=== PATIENT | female | born 1930 ===

== ENCOUNTER 2018-04-03 15:50 | Inpatient (IN) | payer MEDICARE, BC ==
[~2018-04-03] VITALS: Ht 162.6 cm; Wt 41.1 kg
[2018-04-03] MEDS ORDERED: PREG75CA PO (16:18)
[2018-04-03] MEDS ORDERED: PRAM0.129 PO (16:18)
[2018-04-03] MEDS ORDERED: ONDA4TAB10 PO (16:18)
[2018-04-03] MEDS ORDERED: BETH25TA PO (16:18)
[2018-04-03] MEDS ORDERED: QUET25TA PO ×2 (16:18)
[2018-04-03] MEDS ORDERED: LORA-258 PO (16:18)
[2018-04-03] MEDS ORDERED: ASCO-375 PO (16:18)
[2018-04-03] MEDS ORDERED: SENN-167 PO (16:18)
[2018-04-03] MEDS ORDERED: DOCU100C36 PO (16:18)
[2018-04-03] MEDS ORDERED: MULT1TAB73 PO (16:18)
[2018-04-03] MEDS ORDERED: SIMV40TA5 PO (16:18)
[2018-04-03] MEDS ORDERED: CARB1TAB21 PO (16:18)
[2018-04-03 16:33] LABS: BASOPHILS % (AUTO) 0.6 % (0.0-2.0); EOSINOPHILS # (AUTO) 0.1 K/uL (0.0-0.7); EOSINOPHILS % (AUTO) 1.2 % (0.0-7.0); HEMATOCRIT 39.7 % (31.2-41.9); HEMOGLOBIN 13.2 g/dL (10.9-14.3); LYMPHOCYTES # (AUTO) 1.5 K/uL (20.0-40.0); LYMPHOCYTES % (AUTO) 19.5 % (20.5-51.5); MEAN CORPUSCULAR HEMOGLOBIN 30.2 uug (24.7-32.8); MEAN CORPUSCULAR HGB CONC 33 g/dL (32.3-35.6); MEAN CORPUSCULAR VOLUME 90.6 fL (75.5-95.3); MONOCYTES # (AUTO) 0.7 K/uL (2.0-10.0); MONOCYTES % (AUTO) 8.5 % (0.0-11.0); NEUTROPHILS # (AUTO) 5.6 K/uL (1.8-8.9); NEUTROPHILS % (AUTO) 70.2 % (38.5-71.5); PLATELET COUNT (AUTO) 289 K/uL (179-408); RED BLOOD CELL COUNT(AUTO) 4.38 MIL/uL (3.63-4.92); WHITE BLOOD COUNT (AUTO) 7.9 K/uL (3.8-11.8)
[2018-04-03 16:42] LABS: CARBON DIOXIDE 28 mmol/L (21-32); CHLORIDE 103 mmol/L (98-107); GLUCOSE 100 mg/dL (74-106); POTASSIUM 4.2 mmol/L (3.5-5.1); UREA NITROGEN, BLOOD 17 mg/dL (7-18)
[2018-04-03 16:58] LABS: ALANINE AMINOTRANSFERASE 18 U/L (14-59); ALKALINE PHOSPHATASE 106 U/L (50-136); ASPARTATE AMINOTRANSFERASE 22 U/L (15-37); BILIRUBIN,DIRECT 0.1 mg/dL (0.0-0.2); BILIRUBIN,TOTAL 0.3 mg/dL (0.2-1.0); TOTAL PROTEIN, SERUM 7.3 g/dL (6.4-8.2)
[2018-04-03 18:28] LABS: *BILIRUBIN,URIN NEGATIVE (NEGATIVE); *BLOOD, URINE Trace-intact (NEGATIVE); *KETONES,URINE NEGATIVE (NEGATIVE); *PROTEIN,URINE NEGATIVE (NEGATIVE); *UROBILINOGEN,URINE 0.2 E.U./dl (NORMAL); LEUKOCYTE ESTERASE ,URINE 3+ (NEGATIVE); NITRITE, URINE POSITIVE (NEGATIVE); UGLUCOSE NEGATIVE (NEGATIVE)
[2018-04-03 18:38] LABS: *CLARITY,URINE CLOUDY (CLEAR); *COLOR,URINE YELLOW (YELLOW)
[2018-04-03 18:40] LABS: BACTERIA,URINE MANY /HPF (NONE SEEN); SQUAMOUS EPITHELIAL CELL,UR MANY /HPF (NONE SEEN); WBC,URINE TNTC /HPF (0-3)
[2018-04-03 20:15] VITALS: BP 171/77
[2018-04-03] MEDS ORDERED: ONDANSETRON 4 MG/2 ML VIAL IV PRN (22:30)
[2018-04-03] MEDS ORDERED: ENALAPRILAT DIHYDRATE INJ 2.5 MG in IV NORMAL SALINE 50 ML IV PRN (22:30)
[2018-04-03] MEDS: ACETAMINOPHEN 325 MG TABLET PO PRN (22:47)
[2018-04-03] MEDS: AMLODIPINE 5 MG TABLET PO SCH (22:47)
[2018-04-03] MEDS: QUETIAPINE FUMARATE 25 MG TABLET PO SCH (22:47)
[2018-04-03] MEDS ORDERED: CEFTRIAXONE 1 G VIAL ONE (23:02)
[2018-04-03] MEDS: CEFTRIAXONE 1 G in IV DEXTROSE 5% 50 ML IV SCH (23:12)
[2018-04-03 23:47] VITALS: BP 137/67
[2018-04-04 03:40] VITALS: BP 156/77
[2018-04-04] MEDS: PANTOPRAZOLE SODIUM 40 MG TABLET.DR PO SCH (06:13)
[2018-04-04 06:31] LABS: BASOPHILS % (AUTO) 0.9 % (0.0-2.0); EOSINOPHILS # (AUTO) 0.1 K/uL (0.0-0.7); EOSINOPHILS % (AUTO) 2.2 % (0.0-7.0); HEMATOCRIT 40.8 % (31.2-41.9); HEMOGLOBIN 13.9 g/dL (10.9-14.3); LYMPHOCYTES # (AUTO) 1.5 K/uL (20.0-40.0); LYMPHOCYTES % (AUTO) 31.8 % (20.5-51.5); MEAN CORPUSCULAR HEMOGLOBIN 30.8 uug (24.7-32.8); MEAN CORPUSCULAR HGB CONC 34 g/dL (32.3-35.6); MEAN CORPUSCULAR VOLUME 90.3 fL (75.5-95.3); MONOCYTES # (AUTO) 0.5 K/uL (2.0-10.0); MONOCYTES % (AUTO) 11.3 % (0.0-11.0); NEUTROPHILS # (AUTO) 2.5 K/uL (1.8-8.9); NEUTROPHILS % (AUTO) 53.8 % (38.5-71.5); PLATELET COUNT (AUTO) 287 K/uL (179-408); RED BLOOD CELL COUNT(AUTO) 4.52 MIL/uL (3.63-4.92); WHITE BLOOD COUNT (AUTO) 4.7 K/uL (3.8-11.8)
[2018-04-04 07:21] LABS: ALANINE AMINOTRANSFERASE 22 U/L (14-59); ALKALINE PHOSPHATASE 104 U/L (50-136); ASPARTATE AMINOTRANSFERASE 22 U/L (15-37); BILIRUBIN,TOTAL 0.3 mg/dL (0.2-1.0); CARBON DIOXIDE 31 mmol/L (21-32); CHLORIDE 105 mmol/L (98-107); CHOLESTEROL 142 mg/dL (<200); CREATININE 0.9 mg/dL (0.6-1.3); GLUCOSE 95 mg/dL (74-106); HDL CHOLESTEROL 72 mg/dL (40-60); MAGNESIUM 2.1 mg/dL (1.8-2.4); PHOSPHOROUS 3.8 mg/dL (2.5-4.9); POTASSIUM 3.6 mmol/L (3.5-5.1); TOTAL PROTEIN, SERUM 7.3 g/dL (6.4-8.2); TRIGLYCERIDES 51 MG/DL (30-150); UREA NITROGEN, BLOOD 13 mg/dL (7-18)
[2018-04-04] MEDS: AMLODIPINE 5 MG TABLET PO SCH (09:00)
[2018-04-04] MEDS ORDERED: Medication Not On Formulary EA (Pramipexole Di-Hcl (Pramipexole Dihydrochloride) 0.125 M PO SCH (09:00)
[2018-04-04] MEDS: CARBIDOPA/LEVODOPA 25-100MG TABLET PO SCH ×2 (09:25→16:57)
[2018-04-04] MEDS: PRAMIPEXOLE 0.25 MG TABLET PO SCH ×2 (09:26→16:57)
[2018-04-04] MEDS: MULTIVITAMINS,THERAPEUTIC TABLET PO SCH (09:26)
[2018-04-04] MEDS: BETHANECHOL CHLORIDE 25 MG TABLET PO SCH ×2 (09:26→16:57)
[2018-04-04] MEDS: QUETIAPINE FUMARATE 25 MG TABLET PO SCH ×2 (11:19→21:27)
[2018-04-04] MEDS: ASCORBIC ACID 500 MG TABLET PO SCH (11:19)
[2018-04-04 11:39] VITALS: BP 89/51
[2018-04-04 16:09] VITALS: BP 135/71
[2018-04-04 20:00] VITALS: BP 116/56
[2018-04-04] MEDS ORDERED: SIMVASTATIN 40 MG TABLET PO SCH (21:00)
[2018-04-04] MEDS: SIMVASTATIN 20 MG TABLET PO SCH (21:26)
[2018-04-04] MEDS: SENNOSIDES 1 TABLET PO SCH (21:27)
[2018-04-04] MEDS: CEFTRIAXONE 1 G in IV DEXTROSE 5% 50 ML IV SCH (22:26)
[2018-04-05] VITALS (7 sets, daily range): BP systolic 84–164; BP diastolic 45–81
[2018-04-05] MEDS: PANTOPRAZOLE SODIUM 40 MG TABLET.DR PO SCH (06:44)
[2018-04-05] MEDS: AMLODIPINE 10 MG TABLET PO SCH ×2 (06:51→09:00)
[2018-04-05] MEDS: BETHANECHOL CHLORIDE 25 MG TABLET PO SCH ×2 (08:05→16:27)
[2018-04-05] MEDS: PRAMIPEXOLE 0.25 MG TABLET PO SCH ×2 (08:05→16:27)
[2018-04-05] MEDS: MULTIVITAMINS,THERAPEUTIC TABLET PO SCH (08:05)
[2018-04-05] MEDS: CARBIDOPA/LEVODOPA 25-100MG TABLET PO SCH ×2 (08:05→16:27)
[2018-04-05 08:47] LABS: BASOPHILS % (AUTO) 0.5 % (0.0-2.0); EOSINOPHILS % (AUTO) 0.7 % (0.0-7.0); HEMATOCRIT 40.8 % (31.2-41.9); HEMOGLOBIN 13.9 g/dL (10.9-14.3); LYMPHOCYTES # (AUTO) 1.2 K/uL (20.0-40.0); LYMPHOCYTES % (AUTO) 21.2 % (20.5-51.5); MEAN CORPUSCULAR HEMOGLOBIN 30.6 uug (24.7-32.8); MEAN CORPUSCULAR HGB CONC 34 g/dL (32.3-35.6); MEAN CORPUSCULAR VOLUME 90.2 fL (75.5-95.3); MONOCYTES # (AUTO) 0.5 K/uL (2.0-10.0); MONOCYTES % (AUTO) 8.6 % (0.0-11.0); NEUTROPHILS # (AUTO) 3.8 K/uL (1.8-8.9); PLATELET COUNT (AUTO) 301 K/uL (179-408); RED BLOOD CELL COUNT(AUTO) 4.52 MIL/uL (3.63-4.92); WHITE BLOOD COUNT (AUTO) 5.5 K/uL (3.8-11.8)
[2018-04-05 09:09] LABS: CARBON DIOXIDE 30 mmol/L (21-32); CHLORIDE 103 mmol/L (98-107); CREATININE 0.8 mg/dL (0.6-1.3); GLUCOSE 112 mg/dL (74-106); PHOSPHOROUS 3.9 mg/dL (2.5-4.9); POTASSIUM 3.8 mmol/L (3.5-5.1); UREA NITROGEN, BLOOD 14 mg/dL (7-18)
[2018-04-05] MEDS ORDERED: Z GUARD REMEDY PASTE 57 GM TUBE TOP PRN (11:00)
[2018-04-05] MEDS: ASCORBIC ACID 500 MG TABLET PO SCH (11:02)
[2018-04-05] MEDS: QUETIAPINE FUMARATE 25 MG TABLET PO SCH ×2 (11:02→20:06)
[2018-04-05] MEDS: SENNOSIDES 1 TABLET PO SCH (20:06)
[2018-04-05] MEDS: SIMVASTATIN 20 MG TABLET PO SCH (20:06)
[2018-04-05] MEDS: CEFTRIAXONE 1 G in IV DEXTROSE 5% 50 ML IV SCH (22:00)
[2018-04-05] MEDS ORDERED: hydrALAZINE HCL 25 MG TABLET PO PRN (22:15)
[2018-04-05] MEDS: MEROPENEM 0.5 G in IV NORMAL SALINE 50 ML IV SCH ×2 (22:22→23:50)
[2018-04-05] MEDS ORDERED: MEROPENEM 500 MG VIAL IV ONE (23:06)
[2018-04-06] VITALS (9 sets, daily range): BP systolic 100–153; BP diastolic 54–88
[2018-04-06] MEDS ORDERED: MEROPENEM 500 MG VIAL IV ONE (01:24)
[2018-04-06] MEDS: MEROPENEM 0.5 G in IV NORMAL SALINE 50 ML IV SCH (05:03)
[2018-04-06] MEDS: ACETAMINOPHEN 325 MG TABLET PO PRN (05:14)
[2018-04-06] MEDS: PANTOPRAZOLE SODIUM 40 MG TABLET.DR PO SCH (06:19)
[2018-04-06] MEDS: BETHANECHOL CHLORIDE 25 MG TABLET PO SCH ×2 (08:06→16:04)
[2018-04-06] MEDS: MULTIVITAMINS,THERAPEUTIC TABLET PO SCH (08:06)
[2018-04-06] MEDS: PRAMIPEXOLE 0.25 MG TABLET PO SCH ×2 (08:07→16:05)
[2018-04-06] MEDS: CARBIDOPA/LEVODOPA 25-100MG TABLET PO SCH ×2 (08:07→16:04)
[2018-04-06] MEDS: QUETIAPINE FUMARATE 25 MG TABLET PO SCH ×2 (11:16→22:58)
[2018-04-06] MEDS: ASCORBIC ACID 500 MG TABLET PO SCH (11:16)
[2018-04-06] MEDS: ACIDOPHILUS/BULGARICUS CHEW TAB PO SCH ×2 (14:36→22:58)
[2018-04-06] MEDS ORDERED: SIMVASTATIN 10 MG TABLET PO SCH (21:00)
[2018-04-06] MEDS: MIDODRINE HCL 2.5 MG TABLET PO SCH (21:00)
[2018-04-06] MEDS: MEROPENEM 500 MG in IV NORMAL SALINE 50 ML IV SCH (21:44)
[2018-04-06] MEDS: SENNOSIDES 1 TABLET PO SCH (22:58)
[2018-04-07] VITALS (7 sets, daily range): BP systolic 96–153; BP diastolic 31–81
[2018-04-07] MEDS ORDERED: MIDODRINE HCL 5 MG TABLET ONE (00:46)
[2018-04-07] MEDS: PANTOPRAZOLE SODIUM 40 MG TABLET.DR PO SCH (06:14)
[2018-04-07] MEDS: PRAMIPEXOLE 0.25 MG TABLET PO SCH (08:15)
[2018-04-07] MEDS: ACIDOPHILUS/BULGARICUS CHEW TAB PO SCH (08:15)
[2018-04-07] MEDS: BETHANECHOL CHLORIDE 25 MG TABLET PO SCH (08:15)
[2018-04-07] MEDS: MULTIVITAMINS,THERAPEUTIC TABLET PO SCH (08:15)
[2018-04-07] MEDS: CARBIDOPA/LEVODOPA 25-100MG TABLET PO SCH (08:15)
[2018-04-07] MEDS: MEROPENEM 500 MG in IV NORMAL SALINE 50 ML IV SCH (08:31)
[2018-04-07] MEDS: MIDODRINE HCL 2.5 MG TABLET PO SCH (09:16)
[2018-04-07] MEDS: QUETIAPINE FUMARATE 25 MG TABLET PO SCH (11:06)
[2018-04-07] MEDS: ASCORBIC ACID 500 MG TABLET PO SCH (11:06)
[2018-04-07] MEDS ORDERED: MERO500V IV (14:21)
[2018-04-07] MEDS ORDERED: SENN-167 PO (14:21)
[2018-04-07] MEDS ORDERED: HYDR25TA86 PO (14:21)
[2018-04-07] MEDS ORDERED: ACET325T53 PO (14:21)
[2018-04-07] MEDS ORDERED: SIMV10TA6 PO (14:21)
== END 2018-04-07 14:10 | DRG 871 ==
LOC: ER 15:55 → TELE 20:06 → MED 04-04 15:24
PROVIDERS: ADMIT Internal Medicine; ATTEND Internal Medicine
DX: A41.9 Sepsis, unspecified organism (principal); G92 Toxic encephalopathy; N39.0 Urinary tract infection, site not specified; D68.59 Other primary thrombophilia; B96.20 Unspecified Escherichia coli [E. coli] as the cause of diseases classified elsewhere; Z16.12 Extended spectrum beta lactamase (ESBL) resistance; G31.83 Neurocognitive disorder with Lewy bodies; F02.80 Dementia in other diseases classified elsewhere, unspecified severity, without behavioral disturbance, psychotic disturbance, mood disturbance, and anxiety; Z74.09 Other reduced mobility; E78.5 Hyperlipidemia, unspecified; R33.9 Retention of urine, unspecified; Z87.440 Personal history of urinary (tract) infections; Z90.710 Acquired absence of both cervix and uterus; R91.8 Other nonspecific abnormal finding of lung field; N32.89 Other specified disorders of bladder
CPT/HCPCS: 36415; 70030-TC; 70450; 71045; 82306; 83605; 83735; 84100; 84443; 85025; 85730; 87040; 87077; 87086; 93005; 97116; 97530; A4663; J0696; J2185; J2405; J3490; J7040; J7060